=== PATIENT | male | born 1960 | race Caucasian/White ===

== ENCOUNTER → 2018-06-13 | Outpatient (CLI) | payer BC ==
[~2018-06-13] MED LIST: ASCO10004 PO; ASPI-496 PO; CYAN10005 PO; LOVA40TA2 PO; NAPR-856 PO; UBID100C24 PO
== END | disposition home or self-care (01) ==
LOC: STAR 09:22
PROVIDERS: ATTEND Orthopaedic Surgery
DX: Z01.818 Encounter for other preprocedural examination (principal); M17.12 Unilateral primary osteoarthritis, left knee
CPT/HCPCS: 87081

== ENCOUNTER 2018-06-20 10:13 | Observation (INO) | payer BC ==
[~2018-06-20] VITALS: Ht 175.3 cm; Wt 91.0 kg
[~2018-06-20 10:13] MED LIST changes: +ACETAMINOPHEN 500 MG TABLET PO ONE; +DIAZEPAM 5 MG TABLET PO ONE; +GABAPENTIN 300 MG CAPSULE PO ONE; +OxyconTIN ER 20 MG TAB.ER PO ONE
[2018-06-20 10:37] VITALS: BP 146/99
[2018-06-20] MEDS ORDERED: LACTATED RINGERS 1,000 ML IV SCH (10:40)
[2018-06-20] MEDS ORDERED: vitamin d3 PO (10:41)
[2018-06-20] MEDS ORDERED: TRANEXAMIC ACID 100 MG/ML, 10ML ONE (11:56)
[2018-06-20] MEDS ORDERED: DEXAMETHASONE 4 MG/ML, 5ML ONE (12:04)
[2018-06-20] MEDS ORDERED: CEFAZOLIN 1,000 MG ONE (12:04)
[2018-06-20] MEDS ORDERED: ONDANSETRON 2MG/ML, 2ML ONE (12:04)
[2018-06-20] MEDS ORDERED: PROPOFOL 10 MG/ML, 20ML ONE (12:04)
[2018-06-20] MEDS ORDERED: FENTANYL PF 100 MCG/2ML IV PRN (13:00)
[2018-06-20] MEDS ORDERED: MEPERIDINE/PF 25MG/0.5ML IVPush PRN (13:00)
[2018-06-20] MEDS ORDERED: hydrALAzine 20 MG/ML, 1ML IV PRN (13:00)
[2018-06-20] MEDS ORDERED: PROMETHAZINE 25 MG/ML, 1ML IV PRN (13:00)
[2018-06-20] MEDS ORDERED: ONDANSETRON 2MG/ML, 2ML IV PRN (13:00)
[2018-06-20] MEDS ORDERED: MIDAZOLAM 1 MG/ML, 2ML IV PRN (13:00)
[2018-06-20] MEDS ORDERED: ALBUTEROL/IPRATROPIUM 2.5MG/0.5MG, 3 ML NPPB PRN (13:00)
[2018-06-20] MEDS ORDERED: OXYcodone 5 MG/5 ML ORAL.SOL UDC PO PRN (13:00)
[2018-06-20] MEDS ORDERED: HYDROmorphone 2 MG/ML, 1ML IVPush PRN (13:00)
[2018-06-20] MEDS ORDERED: SCOPOLAMINE PATCH, 1.5MG PATCH.TD72 TD PRN (13:00)
[2018-06-20] MEDS ORDERED: BUPIVACAINE/EPI 0.5% 1:200K ONE (13:07)
[2018-06-20] MEDS ORDERED: FENTANYL PF 100 MCG/2ML ONE (13:25)
[2018-06-20] MEDS ORDERED: D5%-0.45% NACL 1,000 ML IV SCH (13:39)
[2018-06-20] MEDS: KETOROLAC 30 MG/1 ML IVPush SCH ×2 (14:00→15:46)
[2018-06-20] MEDS ORDERED: HYDROcodone/APAP 10/325 MG TABLET PO SCH (14:00)
[2018-06-20] MEDS ORDERED: ONDANSETRON 2MG/ML, 2ML IVPush PRN (14:00)
[2018-06-20] MEDS ORDERED: NAPROXEN 500 MG TABLET PO PRN (14:00)
[2018-06-20] MEDS ORDERED: CEFAZOLIN PMX 2GM/50ML 50 ML IVPB SCH (14:00)
[2018-06-20] MEDS ORDERED: morphine SULFATE 10 MG/ML, 1ML IVPush PRN (14:00)
[2018-06-20] MEDS ORDERED: OXYcodone 5 MG/5 ML ORAL.SOL UDC ONE (14:17)
[2018-06-20] MEDS ORDERED: KETOROLAC 30 MG/1 ML ONE (14:19)
[2018-06-20 17:33] VITALS: BP 127/82
[2018-06-20] MEDS ORDERED: DOCUSATE 100 MG CAPSULE PO SCH (21:00)
[2018-06-20] MEDS ORDERED: LOVASTATIN 40 MG TABLET PO SCH (21:00)
[2018-06-20] MEDS ORDERED: ASPIRIN 325 MG TABLET PO SCH (21:00)
[2018-06-21] MEDS ORDERED: CYANOCOBALAMIN 1,000 MCG TABLET PO SCH (09:00)
== END 2018-06-20 17:42 | disposition home or self-care (01) ==
LOC: OUT 10:13 → ORIP 13:39 → 4NOR 15:14
PROVIDERS: ADMIT Orthopaedic Surgery; ATTEND Orthopaedic Surgery
DX: M17.12 Unilateral primary osteoarthritis, left knee (principal); M87.9 Osteonecrosis, unspecified
CPT/HCPCS: 27446; 73560; 97161; C1713; C1776; G0378; J0690; J1100; J1885; J2175; J2250; J2405; J2704; J3010; J3490; J7120